=== PATIENT | female | born 1965 | race African-American/Black ===

== ENCOUNTER 2018-01-10 04:00 | Emergency (ER) | payer SELFPAY ==
[2018-01-10] MEDS ORDERED: ONDANSETRON 4 MG INJ IV (04:31)
[2018-01-10] MEDS ORDERED: SOD CHLORIDE 0.9% 1,000 ML IV (05:00)
== END 2018-01-10 05:30 | disposition left against medical advice (07) ==
LOC: E/R 04:00
DX: R11.2 Nausea with vomiting, unspecified (principal)
CPT/HCPCS: 99282